=== PATIENT | male | born 1980 | race Caucasian/White ===

== ENCOUNTER → 2016-11-13 | Day surgery (SDC) | payer OTHER ==
[~2016-11-13] MED LIST: ADIPEX-P37.5 M1 PO; BACTRIM DS TAB1 EACH PO; NEURONTIN 300300 MG PO; NORCO 10-325 T1 EACH PO
== END | disposition home or self-care (01) ==
LOC: OR 11-06 14:45
PROVIDERS: Orthopaedic Surgery
PROC: 0JBJ0ZZ Excision of Right Hand Subcutaneous Tissue and Fascia, Open Approach (ICD-10-PCS; principal; 2016-11-13 12:45)
DX: L08.89 Other specified local infections of the skin and subcutaneous tissue (principal); R22.31 Localized swelling, mass and lump, right upper limb; K21.9 Gastro-esophageal reflux disease without esophagitis; F17.290 Nicotine dependence, other tobacco product, uncomplicated; Z88.2 Allergy status to sulfonamides; Z79.899 Other long term (current) drug therapy; Z80.42 Family history of malignant neoplasm of prostate
CPT/HCPCS: 87070; J0690; J2250; J2795; J3010; J7120

== ENCOUNTER 2021-01-03 14:57 | Observation (INO) | payer OTHER ==
[~2021-01-03] VITALS: Ht 190.5 cm; Wt 93.0 kg
[2021-01-03 15:45] LABS: HEMOGLOBIN 17.5 gm/dl (14.0-17.5); RED BLOOD COUNT 5.98 M/UL (4.20-5.50); WHITE BLOOD COUNT 12.8 K/UL (4.5-11.0)
[2021-01-03 16:08] LABS: BUN/CREATININE RATIO 12 (0-10)
[2021-01-03] MEDS ORDERED: ZANAFLEX4 MG PO (19:12)
[2021-01-03] MEDS ORDERED: WELLBUTRIN XL150 MG PO (19:12)
[2021-01-03] MEDS ORDERED: VIAGRA100 MG PO (19:13)
[2021-01-03] MEDS ORDERED: FLONASE 0.05% N16 GM (19:13)
[2021-01-03] MEDS ORDERED: ARTIFICIAL TEAR15 M6 OP (19:13)
[2021-01-04 03:05] LABS: HEMOGLOBIN 15.2 gm/dl (14.0-17.5); RED BLOOD COUNT 5.26 M/UL (4.20-5.50); WHITE BLOOD COUNT 8.2 K/UL (4.5-11.0)
[2021-01-04 03:34] LABS: BUN/CREATININE RATIO 13 (0-10)
[2021-01-04] MEDS ORDERED: ZTLIDO1 EACH TP (11:29)
[2021-01-04] MEDS ORDERED: K-DUR TAB 20 M20 MEQ PO (11:59)
== END 2021-01-04 16:20 | disposition home or self-care (01) ==
LOC: ER1 14:57 → CDU 17:16 → M/S 18:37
PROVIDERS: Emergency Medicine; Physician Assistant Medical; ADMIT Internal Medicine
DX: R55 Syncope and collapse (principal); E87.6 Hypokalemia; F15.10 Other stimulant abuse, uncomplicated; F17.210 Nicotine dependence, cigarettes, uncomplicated; Z20.822 Contact with and (suspected) exposure to COVID-19; Z88.2 Allergy status to sulfonamides; Z79.899 Other long term (current) drug therapy
CPT/HCPCS: ECHO; 36415; 36600; 70487; 70491; 71045; 80048; 80053; 80307; 82550; 82553; 82803; 83690; 83735; 83874; 83880; 84100; 84439; 84443; 84484; 85025; 85027; 85379; 85610; 85730; 93005; 93306; 93971; 96374; 99285; G0378; G0480; J1885; J7030; Q9967; U0002